=== PATIENT | female | born 1995 | race Caucasian/White ===

== ENCOUNTER 2018-04-01 19:14 | Emergency (ER) | payer SELFPAY, OTHER, MEDICAID ==
[2018-04-01 20:23] LABS: ADD MAN DIFF? NO
[2018-04-01 20:30] LABS: ABNORMAL IP MESSAGE 1; BASOPHILS % 0.3 % (0.0-2.0); EOSINOPHILS # 0.1 10^3/ul (0.0-0.5); HEMATOCRIT 37.7 % (37.0-47.0); HEMOGLOBIN 12.2 g/dl (12.0-16.0); LYMPHOCYTES % 28.3 % (15.0-51.0); MEAN CORPUSCULAR HEMOGLOBIN 27.8 pg (29.0-33.0); MEAN CORPUSCULAR HGB CONC 32.4 g/dl (32.0-37.0); MEAN CORPUSCULAR VOLUME 85.9 fl (82.0-101.0); MEAN PLATELET VOLUME 13.1 fl (7.4-10.4); MONOCYTES % 9.1 % (0.0-11.0); NEUTROPHIL # 6.4 10^3/ul (1.6-7.5); NEUTROPHILS % 61.1 % (39.0-77.0); PLATELET COUNT 190 10^3/UL (140-415); RED BLOOD COUNT 4.39 10^6/ul (4.20-5.40); RED CELL DISTRIBUTION WIDTH 13.2 % (11.5-14.5)
[2018-04-01 20:30] LABS: WHITE BLOOD COUNT 10.5 10^3/ul (4.8-10.8)
[2018-04-01 20:32] LABS: POSITIVE DIFF @See below
[2018-04-01 20:35] LABS: ADD UMIC YES; UR ASCORBIC ACID NEGATIVE (NEGATIVE); UR BACTERIA FEW /HPF (NONE SEEN); UR BILIRUBIN (Dip) NEGATIVE (NEGATIVE); UR BLOOD (Dip) 2+ mg/dL (NEGATIVE); UR CLARITY SLIGHTLY CLOUDY (CLEAR); UR COLOR YELLOW (YELLOW); UR GLUCOSE (Dip) NEGATIVE (NEGATIVE); UR KETONES (Dip) TRACE mg/dL (NEGATIVE); UR LEUKOCYTE ESTERASE (Dip) 2+ Leu/ul (NEGATIVE); UR MUCUS MANY /HPF (NONE SEEN); UR NITRITE (Dip) NEGATIVE (NEGATIVE); UR RBC 5 /HPF (0-5); UR SPECIFIC GRAVITY (Dip) 1.023 (1.003-1.030); UR SQUAMOUS EPITHELIAL CELL MODERATE /HPF (FEW); UR TOTAL PROTEIN (Dip) NEGATIVE (NEGATIVE); UR UROBILINOGEN (Dip) 1+ mg/dL (NEGATIVE); UR WBC 9 /HPF (0-5)
== END 2018-04-01 22:08 | disposition home or self-care (01) ==
LOC: FTE 19:14
DX: O26.891 Other specified pregnancy related conditions, first trimester (principal); R10.2 Pelvic and perineal pain; Z3A.01 Less than 8 weeks gestation of pregnancy
CPT/HCPCS: 36415; 76801; 81001; 84702; 85025; 86900; 86901; 99284-25

== ENCOUNTER 2018-10-18 12:10 | Outpatient (CLI) | payer MEDICAID ==
[2018-10-18 13:05] LABS: ADD MAN DIFF? NO
[2018-10-18 13:07] LABS: ABNORMAL IP MESSAGE 1; BASOPHILS % 0.2 % (0.0-2.0); EOSINOPHILS # 0.1 10^3/ul (0.0-0.5); EOSINOPHILS % 0.8 % (0.0-7.0); HEMATOCRIT 34.4 % (37.0-47.0); HEMOGLOBIN 11.2 g/dl (12.0-16.0); LYMPHOCYTES # 1.8 10^3/ul (0.8-2.9); MEAN CORPUSCULAR HEMOGLOBIN 28.8 pg (29.0-33.0); MEAN CORPUSCULAR HGB CONC 32.6 g/dl (32.0-37.0); MEAN CORPUSCULAR VOLUME 88.4 fl (82.0-101.0); MEAN PLATELET VOLUME 13.1 fl (7.4-10.4); MONOCYTE # 0.8 10^3/ul (0.3-0.9); MONOCYTES % 8.1 % (0.0-11.0); NEUTROPHILS % 72.2 % (39.0-77.0); PLATELET COUNT 152 10^3/UL (140-415); RED BLOOD COUNT 3.89 10^6/ul (4.20-5.40); RED CELL DISTRIBUTION WIDTH 12.3 % (11.5-14.5)
[2018-10-18 13:07] LABS: WHITE BLOOD COUNT 9.7 10^3/ul (4.8-10.8)
[2018-10-18 13:08] LABS: POSITIVE DIFF @See below
[2018-10-18 13:26] LABS: INR 0.93; PARTIAL THROMBOPLASTIN TIME 25.9 Sec (23.0-35.0); PROTIME 12.6 Sec (11.9-14.9)
[2018-10-18 13:42] LABS: ADD UMIC YES; ALANINE AMINOTRANSFERASE 19 IU/L (13-69); ALBUMIN 3.3 g/dl (3.3-4.9); ALBUMIN/GLOBULIN RATIO 1.06; ALKALINE PHOSPHATASE 178 IU/L (42-121); ANION GAP 5 (5-13); ASPARTATE AMINO TRANSFERASE 26 IU/L (15-46); BILIRUBIN,INDIRECT 0.4 mg/dl (0-1.1); BILIRUBIN,TOTAL 0.4 mg/dl (0.2-1.3); BLOOD UREA NITROGEN 6 mg/dl (7-20); CALCIUM 9.6 mg/dl (8.4-10.2); CARBON DIOXIDE 25 mmol/L (21-31); CHLORIDE 108 mmol/L (97-110); Estimated GFR > 60 mL/min (>60); GLUCOSE 75 mg/dl (70-220); POTASSIUM 3.9 mmol/L (3.5-5.1); SODIUM 138 mmol/L (135-144); TOTAL PROTEIN 6.4 g/dl (6.1-8.1); UR ASCORBIC ACID NEGATIVE (NEGATIVE); UR BILIRUBIN (Dip) NEGATIVE (NEGATIVE); UR BLOOD (Dip) NEGATIVE (NEGATIVE); UR CLARITY SLIGHTLY CLOUDY (CLEAR); UR COLOR YELLOW (YELLOW); UR GLUCOSE (Dip) NEGATIVE (NEGATIVE); UR KETONES (Dip) 1+ mg/dL (NEGATIVE); UR LEUKOCYTE ESTERASE (Dip) 1+ Leu/ul (NEGATIVE); UR MUCUS FEW /HPF (NONE SEEN); UR NITRITE (Dip) NEGATIVE (NEGATIVE); UR RBC 1 /HPF (0-5); UR SPECIFIC GRAVITY (Dip) 1.018 (1.003-1.030); UR SQUAMOUS EPITHELIAL CELL MODERATE /HPF (FEW); UR TOTAL PROTEIN (Dip) NEGATIVE (NEGATIVE); UR UROBILINOGEN (Dip) 1+ mg/dL (NEGATIVE); UR WBC 5 /HPF (0-5); URIC ACID 4.6 mg/dl (3.1-7.9)
== END 2018-10-18 14:10 | disposition home or self-care (01) ==
LOC: OBT 12:10 → L-D 12:12 → OBT 14:10
DX: O62.9 Abnormality of forces of labor, unspecified (principal); Z3A.35 35 weeks gestation of pregnancy
CPT/HCPCS: 76818; 80053; 81001; 84560; 85025; 85610; 85730

== ENCOUNTER 2018-11-18 09:27 | Inpatient (IN) | payer MEDICAID ==
[2018-11-18] MEDS ORDERED: BUTORPHANOL 2 MG INJ IV (13:00)
[2018-11-18] MEDS ORDERED: CARBOPROST 250 MCG INJ IM (13:00)
[2018-11-18] MEDS ORDERED: METHYLERGONOVINE 0.2 MG INJ IM (13:00)
[2018-11-18] MEDS ORDERED: OXYCODONE/ASPIRIN (4.88/325) TAB PO (13:00)
[2018-11-18] MEDS ORDERED: MISOPROSTOL 200 MCG TAB PR (13:00)
[2018-11-18] MEDS ORDERED: IBUPROFEN 600 MG TAB PO (13:00)
[2018-11-18] MEDS ORDERED: LIDOCAINE 1% (MPF) 30 ML INJ INJ (13:00)
[2018-11-18 13:37] LABS: ADD MAN DIFF? NO
[2018-11-18 13:38] LABS: WHITE BLOOD COUNT 10.1 10^3/ul (4.8-10.8)
[2018-11-18 13:38] LABS: ABNORMAL IP MESSAGE 1; BASOPHILS % 0.2 % (0.0-2.0); EOSINOPHILS # 0.1 10^3/ul (0.0-0.5); EOSINOPHILS % 0.5 % (0.0-7.0); HEMATOCRIT 34.8 % (37.0-47.0); HEMOGLOBIN 11.3 g/dl (12.0-16.0); LYMPHOCYTES # 1.8 10^3/ul (0.8-2.9); LYMPHOCYTES % 17.7 % (15.0-51.0); MEAN CORPUSCULAR HEMOGLOBIN 28.1 pg (29.0-33.0); MEAN CORPUSCULAR HGB CONC 32.5 g/dl (32.0-37.0); MEAN CORPUSCULAR VOLUME 86.6 fl (82.0-101.0); MEAN PLATELET VOLUME 13.4 fl (7.4-10.4); MONOCYTE # 0.9 10^3/ul (0.3-0.9); MONOCYTES % 8.8 % (0.0-11.0); NEUTROPHIL # 7.2 10^3/ul (1.6-7.5); NEUTROPHILS % 71.7 % (39.0-77.0); PLATELET COUNT 127 10^3/UL (140-415); RED BLOOD COUNT 4.02 10^6/ul (4.20-5.40); RED CELL DISTRIBUTION WIDTH 13.2 % (11.5-14.5)
[2018-11-18 13:39] LABS: POSITIVE DIFF @See below
[2018-11-18] MEDS: LACTATED RINGER'S 1,000 ML IV ×3 (13:48→17:29)
[2018-11-18 14:02] LABS: INR 0.92; PROTIME 12.5 Sec (11.9-14.9)
[2018-11-18 14:03] LABS: PARTIAL THROMBOPLASTIN TIME 28.2 Sec (23.0-35.0)
[2018-11-18 14:26] LABS: HEPATITIS B SURFACE ANTIGEN NEGATIVE (NEGATIVE)
[2018-11-18] MEDS: AMPICILLIN 2 GM/NS (PMX) 100 ML IV (14:29)
[2018-11-18] MEDS: MISOPROSTOL 50 MCG CAPSULE PO (14:30)
[2018-11-18] MEDS ORDERED: FENTAnyl 2MCG/ML-ROPIV 0.2% 100 ML (16:14)
[2018-11-18] MEDS ORDERED: DIPHENHYDRAMINE 50 MG INJ IV (16:30)
[2018-11-18] MEDS ORDERED: ONDANSETRON 4 MG INJ IV (16:30)
[2018-11-18] MEDS ORDERED: NALOXONE (0.4 MG/ML) INJ IV (16:30)
[2018-11-18] MEDS: AZITHROMYCIN 500 MG TAB PO (16:57)
[2018-11-18] MEDS: AMPICILLIN 1 GM/NS (PMX) 50 ML IV ×2 (18:47→23:08)
[2018-11-18 22:09] LABS: RAPID PLASMA REAGIN NONREACTIVE (NR)
[2018-11-18] MEDS: FENTAnyl 2MCG/ML-ROPIV 0.2% 100 ML BAG EPI (23:39)
[2018-11-19] MEDS: LACTATED RINGER'S 1,000 ML IV ×4 (03:01→22:31)
[2018-11-19] MEDS: AMPICILLIN 1 GM/NS (PMX) 50 ML IV ×6 (03:01→23:41)
[2018-11-19] MEDS: OXYTOCIN 30 UNITS/LR 500 ML IV (03:12)
[2018-11-19] MEDS: FENTAnyl 2MCG/ML-ROPIV 0.2% 100 ML BAG EPI ×3 (07:59→22:34)
[2018-11-20] MEDS: AMPICILLIN 1 GM/NS (PMX) 50 ML IV ×2 (03:30→07:42)
[2018-11-20] MEDS: OXYTOCIN 30 UNITS/LR 500 ML IV ×4 (04:46→15:59)
[2018-11-20] MEDS: FENTAnyl 2MCG/ML-ROPIV 0.2% 100 ML BAG EPI (06:39)
[2018-11-20] MEDS: LACTATED RINGER'S 1,000 ML IV ×2 (06:41→07:43)
[2018-11-20] MEDS: CEFAZOLIN 2 GM/50 ML (PMX) 50 ML IVPB ×2 (08:30→18:16)
[2018-11-20] MEDS ORDERED: LIDOCAINE 2% (SDV) 5 ML INJ (08:55)
[2018-11-20] MEDS ORDERED: NA BICARB 50 MEQ/50 ML VIAL (08:56)
[2018-11-20] MEDS ORDERED: FENTAnyl 50 MCG/ML VIAL ×2 (08:56→09:21)
[2018-11-20] MEDS ORDERED: ONDANSETRON 4 MG INJ IV (09:00)
[2018-11-20] MEDS ORDERED: HYDROmorphONE 0.5 MG/0.5 ML SYG IV ×2 (09:00)
[2018-11-20] MEDS ORDERED: DIPHENHYDRAMINE 50 MG INJ IV (09:00)
[2018-11-20] MEDS ORDERED: NALOXONE (0.4 MG/ML) INJ IV (09:00)
[2018-11-20] MEDS ORDERED: ZOLPIDEM 5 MG TAB PO (09:00)
[2018-11-20] MEDS ORDERED: DEXAMETHASONE 4 MG/ML 1 ML INJ (09:07)
[2018-11-20] MEDS ORDERED: MIDAZOLAM 1 MG/ML 2 ML INJ (09:22)
[2018-11-20] MEDS ORDERED: morphine SULFATE/PF (10 MG/10 ML) INJ (09:38)
[2018-11-20] MEDS ORDERED: CARBOPROST 250 MCG INJ IM (10:30)
[2018-11-20] MEDS ORDERED: MISOPROSTOL 200 MCG TAB PR (10:30)
[2018-11-20] MEDS ORDERED: CEFAZOLIN 2 GM/50 ML (PMX) 50 ML IVPB (10:30)
[2018-11-20] MEDS ORDERED: METHYLERGONOVINE 0.2 MG INJ IM (10:30)
[2018-11-20] MEDS ORDERED: NACL 0.9% 3 ML SYG IV (10:30)
[2018-11-20] MEDS ORDERED: OXYTOCIN 30 UNITS/LR 500 ML IV (10:30)
[2018-11-20] MEDS: KETOROLAC 30 MG INJ IV ×2 (10:45→20:36)
[2018-11-20 11:05] LABS: AMPHETAMINE/METHAMPHETAMINE Negative (NEGATIVE); BARBITURATES Negative (NEGATIVE); BENZODIAZEPINES Negative (NEGATIVE); CANNABINOIDS Negative (NEGATIVE); COCAINE Negative (NEGATIVE); OPIATES Negative (NEGATIVE)
[2018-11-20] MEDS: SENNA/DOCUSATE NA (8.6MG/50MG) TAB PO (20:35)
[2018-11-21] MEDS: LACTATED RINGER'S 1,000 ML IV ×3 (01:10→17:00)
[2018-11-21] MEDS: CEFAZOLIN 2 GM/50 ML (PMX) 50 ML IVPB ×2 (01:38→10:23)
[2018-11-21] MEDS: KETOROLAC 30 MG INJ IV (05:53)
[2018-11-21 08:19] LABS: ADD MAN DIFF? NO
[2018-11-21 08:21] LABS: WHITE BLOOD COUNT 12.3 10^3/ul (4.8-10.8)
[2018-11-21 08:21] LABS: ABNORMAL IP MESSAGE 1; BASOPHILS % 0.2 % (0.0-2.0); EOSINOPHILS # 0.1 10^3/ul (0.0-0.5); EOSINOPHILS % 0.4 % (0.0-7.0); HEMATOCRIT 24.4 % (37.0-47.0); LYMPHOCYTES # 1.7 10^3/ul (0.8-2.9); LYMPHOCYTES % 13.4 % (15.0-51.0); MEAN CORPUSCULAR HEMOGLOBIN 28.4 pg (29.0-33.0); MEAN CORPUSCULAR HGB CONC 32.8 g/dl (32.0-37.0); MEAN CORPUSCULAR VOLUME 86.5 fl (82.0-101.0); MONOCYTE # 1.3 10^3/ul (0.3-0.9); MONOCYTES % 10.6 % (0.0-11.0); NEUTROPHIL # 9.2 10^3/ul (1.6-7.5); NEUTROPHILS % 74.8 % (39.0-77.0); PLATELET COUNT 112 10^3/UL (140-415); RED BLOOD COUNT 2.82 10^6/ul (4.20-5.40); RED CELL DISTRIBUTION WIDTH 13.7 % (11.5-14.5)
[2018-11-21 08:24] LABS: POSITIVE DIFF @See below
[2018-11-21] MEDS: SENNA/DOCUSATE NA (8.6MG/50MG) TAB PO ×3 (10:23→22:12)
[2018-11-21] MEDS: OXYCODONE/ACETAMINOPHEN (5/325) TAB PO ×2 (12:58→19:55)
[2018-11-21] MEDS: IBUPROFEN 800 MG TAB PO ×2 (13:44→22:12)
[2018-11-21] MEDS: LANOLIN HPA 1 PKT TOP (19:55)
[2018-11-22] MEDS: IBUPROFEN 800 MG TAB PO ×3 (05:51→21:43)
[2018-11-22] MEDS: OXYCODONE/ACETAMINOPHEN (5/325) TAB PO ×3 (08:26→18:57)
[2018-11-22] MEDS: SENNA/DOCUSATE NA (8.6MG/50MG) TAB PO (21:44)
[2018-11-23] MEDS: IBUPROFEN 800 MG TAB PO (05:53)
[2018-11-23 09:17] LABS: HEMATOCRIT 26.8 % (37.0-47.0); HEMOGLOBIN 8.6 g/dl (12.0-16.0)
[2018-11-23] MEDS: OXYCODONE/ACETAMINOPHEN (5/325) TAB PO (09:46)
[2018-11-23] MEDS: SENNA/DOCUSATE NA (8.6MG/50MG) TAB PO (09:46)
[2018-11-24 12:46] LABS: RUBELLA ANTIBODY - IGM <20.00 AU/mL
[2018-11-24 22:12] LABS: RUBELLA ANTIBODY - IGG 1.71 index
== END 2018-11-23 15:06 | disposition home or self-care (01) | DRG 786 ==
LOC: OBT 09:27 → L-D 11-20 08:48 → PP1 11-20 12:46 → L-D 12:57 → OBT 12:30 → L-D 13:14
PROVIDERS: Obstetrics & Gynecology
PROC: 10D00Z1 Extraction of Products of Conception, Low, Open Approach (ICD-10-PCS; principal; 2018-11-20)
DX: O48.0 Post-term pregnancy (principal); K83.1 Obstruction of bile duct; O26.62 Liver and biliary tract disorders in childbirth; Z3A.40 40 weeks gestation of pregnancy; Z37.0 Single live birth
CPT/HCPCS: 62322; 76815; 76818; 80307; 85014; 85018; 85025; 85610; 85730; 86592; 86762; 86850; 86900; 86901; 87340; 99464